=== PATIENT | female | born 1960 | race Caucasian/White ===

== ENCOUNTER 2016-05-10 16:01 | Inpatient (IN) | payer OTHER ==
--- NOTE | 2016-05-10 16:07 | EDPHY ---
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 Upon arrival, she is alert and oriented. Her primary complaint is head pain severity 7/10 localized to her posterior scalp with a scalp laceration. She denies neck or back pain. She does not remember the incident but reports that she suspects it is a seizure. She takes Lamictal for seizures and has not had any recent changes to her dosing. Medical history includes remote history of breast cancer and double mastectomy. REVIEW OF SYSTEMS: Constitutional: No weakness Eyes: No visual changes or eye pain Head: +pain to the posterior scalp ENT: No dental trauma Neck: No pain or injury Respiratory: No shortness of breath Cardiac: No chest pain Gastrointestinal: No abdominal pain, no vomiting Back: No pain or injury Genitourinary: No hematuria Musculoskeletal: No joint pain Skin: +head laceration Neurological: No headache, no dizziness Past Medical/Surgical History: History of breast cancer with double mastectomy 10 years [employer]. Seizures (Lamictal ); followed Dr. Zayas, neurologist. Social History: Denies drug or alcohol use. Physical Exam: General Appearance: Alert, pleasant Head: 4 cm scalp laceration posteriorly Eyes: No conjunctival erythema, PERRLA, EOMI ENT, Mouth: No hemotympanum, no oral trauma, no bony tenderness Neck: Non-tender, full range of motion without pain Respiratory: No chest wall tenderness, lungs clear bilaterally Cardiovascular: Regular rate and rhythm Abdomen: Abdomen is soft and non tender Skin: 2cm posterior scalp laceration, no abrasions Back: No midline T/L/S tenderness Extremities: Pelvis is stable and nontender; no extremity tenderness or deformity, full range of motion without pain Neurological: A&Ox3, normal motor function, normal sensory exam, cranial nerves intact Psychiatric: Mood and affect normal Constitutional: Initial Vital Signs Temperature (C) 37.2 C 05/10/16 16:09 Heart Rate 90 05/10/16 16:09 Respiratory Rate 18 05/10/16 16:09 Blood Pressure 135/91 H 05/10/16 16:09 O2 Sat (%) 99 05/10/16 16:09 O2 Delivery Mode Room Air Allergies/Adverse Reactions: Sulfa (Sulfonamide Antibiotics) Allergy (Verified 08/23/15 00:42) Home Medications: Medication Instructions Recorded ALPRAZolam [Xanax 1 MG (*)] 1 mg PO DAILY PRN 08/23/15 Ibuprofen [Motrin (*)] 200 mg PO DAILY PRN 08/23/15 lamoTRIgine [LamICTAL 100 MG (*)] 200 mg PO DAILY18 08/23/15 lamoTRIgine [LamICTAL 100 MG (*)] 400 mg PO DAILY 08/23/15 Acetaminophen [Tylenol 325mg (*)] 650 mg PO Q4 PRN #0 tab 08/24/15 Zolpidem Tartrate [Ambien 10 mg] 10 mg PO HS 05/10/16 Medical Decision Making - Diagnostics Imaging: Study: CT of the head without IV contrast Indication: Seizure, trauma Results: CT scan of the head was obtained. The results of the study are: Negative noncontrast CT of the head with no intracranial posttraumatic sequela identified. The study was read by the radiologist, Dr. Rai Mendoza. I viewed the images myself on the PACS system. Procedures: Procedure: Laceration repair. The 4cm laceration on the posterior scalp was anesthetized using lidocaine and epinephrine. The wound was irrigated, draped and explored to its base with a gloved finger. There were no deep structures involved. No foreign body palpable. The wound was repaired with jordi. The wound repair was simple. ED Course/Re-evaluation: 1603: Took EMS report at bedside. Found down, A&O x 2. Limited Trauma Activation downgraded on patient arrival. This patient has a history of seizures for which she is followed by a neurologist and has been prescribed Lamictal. Her last reported seizure was petite mal four days prior to arrival; she does not recall the last time she had a grand mal seizure but suspects that this is what she experienced today. Her exam is benign apart from a laceration to the posterior scalp. Will proceed with wound care, laceration repair, and CT of the head without contrast. 1721: Laceration repair performed by myself (see procedure note). The patient had a recurrent seizure while in the ED. Given this, she will need to be admitted for observation. IV established. 500mg IV Keppra with 100ml IV NS administered. No recurrent seizures after IV Keppra. 1932: Consultation with Dr. Gaviota Flores, hospitalist, who accepts admission. - Data Points Laboratory Results: Laboratory Results 05/10/16 19:25 05/10/16 19:25 Medications Given: Discontinued Medications Levetiracetam 500 mg/ Sodium (Chloride) 105 mls @ 420 mls/hr IV EDNOW ONE Stop: 05/10/16 19:32 Last Admin: 05/10/16 19:51 Dose: 105 mls Miscellaneous Medication (Zolpidem Tartrate [Ambien 10 Mg]) 10 mg PO HS TINO Stop: 11/07/16 20:59 Last Admin: 05/10/16 23:19 Dose: 10 mg Ondansetron HCl (Zofran Odt) 4 mg PO ONCE ONE Stop: 05/10/16 20:38 Last Admin: 05/10/16 17:30 Dose: 4 mg Departure - Departure Disposition: [facility] Inpatient Acute Clinical Impression: Seizure Scalp laceration Qualifiers: Encounter type: initial encounter Qualified Code(s): S01.01XA - Laceration without foreign body of scalp, initial encounter Condition: Fair Report Scribed for: Ericka Gordon Report Scribed by: Paty Hartman Date of Report: 05/10/16 Time of Report: 16:02
[2016-05-10] MEDS ORDERED: ONDANSETRON DISINTEGRATING 4 MG TAB ONE (19:02)
[2016-05-10] MEDS ORDERED: levETIRAcetam 500 MG in NS 100 ML IV ONE (19:18)
[2016-05-10 19:38] LABS: % IMMATURE GRANULYOCYTES 0.3 % (0.0-1.1); ABSOLUTE IMMATURE GRANULOCYTES 0.06 10^3/uL (0.00-0.10); ADD DIFF? NO; ADD MORPH? NO; ADD SCAN? NO; ATYPICAL LYMPHOCYTE FLAG 10 (0-99); FRAGMENT RBC FLAG 0 (0-99); HEMATOCRIT 42.3 % (38.0-47.0); LEFT SHIFT FLG 10 (0-99); LIPEMIA HEMOLYSIS FLAG 80 (0-99); MEAN CELL HEMOGLOBIN 31.7 pg (27.9-34.1); MEAN CELL HEMOGLOBIN CONCENTR. 33.1 g/dL (32.4-36.7); MEAN CELL VOLUME 95.9 fL (81.5-99.8); MEAN PLATELET VOLUME 10.5 fL (8.7-11.7); PLATELET CLUMPS FLAG 10 (0-99); PLATELET COUNT 244 10^3/uL (150-400); RED BLOOD CELL COUNT 4.41 10^6/uL (4.18-5.33); RED CELL DISTRIBUTION WIDTH 12.2 % (11.5-15.2)
[2016-05-10 19:48] LABS: ANION GAP 24 mEq/L (8-16); CALCIUM 9.8 mg/dL (8.5-10.4); CARBON DIOXIDE 13 mEq/l (22-31); CHLORIDE 104 mEq/L (97-110); CREATININE 0.7 mg/dL (0.6-1.0); GLOMERULAR FILTRATION RATE > 60; GLUCOSE 133 mg/dL (70-100); POTASSIUM 3.8 mEq/L (3.5-5.2); SODIUM 141 mEq/L (134-144)
[2016-05-10] MEDS ORDERED: ONDANSETRON DISINTEGRATING 4 MG TAB PO ONE (20:37)
[2016-05-10] MEDS ORDERED: ALPRAZolam 1 MG TAB PO PRN (23:07)
[2016-05-10] MEDS ORDERED: IBUPROFEN 200 MG TAB PO ONE (23:08)
[2016-05-10] MEDS ORDERED: ACETAMINOPHEN 325 MG TAB PO PRN (23:09)
[2016-05-10] MEDS ORDERED: ONDANSETRON 4 MG/2 ML VIAL IVP PRN (23:09)
[2016-05-10] MEDS: IBUPROFEN 200 MG TAB PO PRN (23:11)
[2016-05-10] MEDS ORDERED: ZOLPIDEM TARTRATE 5 MG TAB ONE (23:15)
[2016-05-10 23:26] LABS: ALBUMIN 4.7 g/dL (3.5-5.0); BILIRUBIN,TOTAL 1.1 mg/dL (0.1-1.4); BILIRUBIN-CONJUGATED 0.5 mg/dL (0.0-0.5); BILIRUBIN-UNCONJUGATED 0.6 mg/dL (0.0-1.1); MAGNESIUM 2.3 mg/dL (1.6-2.3); TOTAL PROTEIN 7.3 g/dL (6.3-8.2)
--- NOTE | 2016-05-11 00:06 | GHP ---
[f rep st] HISTORY AND PHYSICAL DATE OF ADMISSION: 05/10/2016 CHIEF COMPLAINT: Found down. HISTORY OF PRESENT ILLNESS: This is a 55-year-old female with history of breast cancer as well as seizure disorder with complex, partial, and grand mall seizures who was brought to the emergency department after being found down on the sidewalk at [facility] and [facility] this afternoon. The patient does not recall what happened. Per ER and EMS report, she presented to the ER as a limited trauma activation after she was found down bleeding from her head. Upon arrival to the ED she was alert and oriented, complaining of headache and pain over her scalp. The patient states that she has been compliant with her seizure medications. She takes Lamictal. Her last grand mal seizure was about 3 weeks ago but she has been having many petite mal seizures which is not unusual for her. She denies any fevers or chills. She denies any head trauma prior to the episode today. She denies any focal numbness or weakness. PAST MEDICAL HISTORY: 1. Seizure disorder with petit mall and grand mall seizures, followed by Dr. Zayas in [place]. 2. Breast cancer status post bilateral mastectomy reconstruction and adjuvant therapy. MEDICATIONS: Reviewed. Refer to [facility] for details. ALLERGIES: Sulfa. SOCIAL HISTORY: Lives in [place]. She denies any alcohol, tobacco, or illicit drug use. FAMILY HISTORY: Significant for breast cancer in her grandmother. REVIEW OF SYSTEMS: Comprehensive 10-point review of systems was done and is negative except for as mentioned in the HPI. PHYSICAL EXAM: VITAL SIGNS: Blood pressure 122/75, pulse of 90 respiratory rate 16, O2 saturation 96% on room air. Temperature afebrile. GENERAL: No acute distress. HEAD: Normocephalic. There is a closed posterior scalp laceration with jordi. NECK: Supple. No lymphadenopathy. CARDIOVASCULAR: S1, S. no JVD. No lower extremity edema. PULMONARY: Lungs are clear. No wheezes, rales, or rhonchi. ABDOMEN: Soft, nontender, nondistended. No guarding or rebound tenderness. Normoactive bowel sounds. EXTREMITIES: No clubbing or cyanosis. NEURO: Cranial nerves 2-12 grossly intact. No focal motor or sensory deficits. Moves all extremities. Vision is normal. Speech is fluent. SKIN: Clear no rashes. There is some erythema over her right AC. DIAGNOSTICS: WBC 18, hemoglobin 14, hematocrit 42.3, platelets 244. Sodium 141 , potassium 3.8, chloride 104, CO2 13, BUN 8, creatinine 0.7, glucose 133. Head CT was reviewed and was negative for intracranial posttraumatic sequelae. Brain MRI done 08/23/2015 was reviewed. Was negative for acute infarct. There was no intra-axial enhancing lesions or abnormal leptomeningeal enhancement. There were a few nonspecific hyperintense T2 flair signal abnormalities in the white matter of the bilateral cerebral hemispheres. ASSESSMENT AND PLAN: This is a 55-year-old female with history of breast cancer and seizure disorder presenting with: 1. Breakthrough seizures resulting in head trauma. Plan: Patient will be placed on observation. She has been loaded on Keppra in the emergency department. Neurology will be consulted. Will check LFTs and magnesium level to complete a metabolic workup for seizures. 2. Leukocytosis likely from stress demargination in the setting of seizure without obvious infectious etiology. Plan: Monitor for signs and symptoms of infection. 3. Scalp laceration. Plan: Recommend staple removal per ER recommendations as well as wound care. /[id number]/MODL MTDD
--- NOTE | 2016-05-11 09:11 | GCON ---
[f rep st] CONSULTATION REFERRING PHYSICIAN: Candido Brenner DO HISTORY: The patient is a 55-year-old woman, who is presenting for evaluation of seizure and being found down. History is obtained in review of the medical records, as well as discussion with the aravind gomes, but she does not know anything except being at some type of an appointment at [facility], and then waking up here in the emergency department. She has a history of breast c ancer, and says that perhaps 10 years ago started having seizures that she describes as petit mal an d grand mal seizures. She says the last time she had a grand mal seizure was about 2 months ago. S he describes khan mal seizures characterized by 5 minutes of being somewhat out of it and a little confused, but says that people looking at her might not even know she is having a seizure. She is f ollowed by Dr. Zayas at [facility] for neurologic care, and she is on Lamictal. She told me she is taking 250 mg a day, but that is not what is documented in the chart. She actually came to the e mergency department when she was found down on the sidewalk at [address] [place] [address], and she has absolute ly no memory for exactly what happened. She was complaining of a headache when she got to the emerg ency department, and was alert, though, and oriented. She apparently takes her medicines regularly. She reports having some of the khan mal seizures as often as 3 times a week. I think details are unreliable at this point. No fever, chills, nausea, vomiting, or diarrhea. The patient has a prior history of breast cancer. She has become homeless, although she says she stays at a assisted. She is not smoking or drinking or using drugs. ALLERGIES: Sulfa. FAMILY HISTORY: Notable for breast cancer in grandmother. LISTED MEDICATIONS: Lamotrigine 200 mg and 400 mg for a total of 600 mg daily, Xanax 1 mg as needed . PHYSICAL EXAM: VITAL SIGNS: Temperature is 37, blood pressure 102/63, pulse of 76, respirations 16 . GENERAL: She is well developed, in no acute distress. EYES: Clear. NECK: Supple. No bruits or masses. CARDIAC: Regular rate and rhythm. No murmur. NEUROLOGIC: She is awake, alert, attent roc, fully oriented. Pupils 3 mm and reactive. Extraocular movements are intact. Normal facial se nsation and strength. Motor exam: Normal muscle bulk and tone. 5/5 strength with no abnormal move ments. Sensation is preserved for temperature and light touch. Reflexes are 2+ and symmetric. LABORATORY STUDIES: White count of 18,000. Chemistries unremarkable except for bicarb of 13. Norm al liver enzymes. IMPRESSION: The patient has a history of seizures described as petit mal and grand mal. The descri ption of the petit mals may or may not represent complex partial phenomenon or other generalized sei zure-type phenomena versus conversion disorder, but at this point, I have no evidence to directly co ntradict that she is having intermittent seizures, including the generalized tonic-clonic events jorje t have been described. She is on reasonable doses of medication for now. I am not going to make an y change. She should follow up with Dr. Zayas when is she stabilized, and she seems to be doing relatively well at the moment, but wait until she is fully back to her baseline for discharge seems reasonable. Total unit time was 55 minutes. /[id number]/MODL
[2016-05-11] MEDS: lamoTRIgine 100 MG TAB PO SCH ×2 (09:30→17:10)
[2016-05-11] MEDS: IBUPROFEN 200 MG TAB PO PRN (13:05)
[2016-05-11] MEDS ORDERED: NS 1,000 ML IV ONE (15:18)
--- NOTE | 2016-05-11 15:28 | HOSPPROG ---
Hospitalist Progress Note Assessment/Plan: # seizure, with known seizure disorder - improved; seen by Dr Bonilla - cont hadley, lamictal # scalp laceration - s/p repair in ED # dizziness/possible concussion - still too dizzy to be discharged - IVF, symptomatic tx today # leukocytosis - likely stress, recheck tomorrow # homelessness # dispo - likely tomorrow if dizziness improves ## new pt to me chart reviewed CT head reviewed Subjective: still very dizzy Objective: Vital Signs Temp Pulse Resp BP Pulse Ox 36.7 C 85 16 139/73 H 97 05/11/16 12:34 05/11/16 12:34 05/11/16 12:34 05/11/16 12:34 05/11/16 12:08 05/10/16 05/11/16 05/12/16 05:59 05:59 05:59 Intake Total 1000 Balance 1000 - Physical Exam Constitutional: no apparent distress, appears nourished Cardiovascular: regular rate and rhythym, no murmur, rub, or gallop Respiratory: no respiratory distress, no rales or rhonchi, clear to auscultation Gastrointestinal: normoactive bowel sounds, soft, non-tender abdomen, no palpable masses ICD10 Worksheet Patient Problems: Problems Problem Status Onset Scalp laceration Acute Seizure Acute Seizure disorder Acute
[2016-05-11] MEDS ORDERED: NON-FORMULARY NEW DRUG (Zolpidem Tartrate [Ambien 10 Mg] 10 MG) PO SCH (21:00)
[2016-05-11] MEDS: ZOLPIDEM TARTRATE 5 MG TAB PO SCH (22:59)
[2016-05-12 05:15] LABS: % IMMATURE GRANULYOCYTES 0.2 % (0.0-1.1); ABSOLUTE IMMATURE GRANULOCYTES 0.01 10^3/uL (0.00-0.10); ADD DIFF? NO; ADD MORPH? NO; ADD SCAN? NO; ATYPICAL LYMPHOCYTE FLAG 20 (0-99); FRAGMENT RBC FLAG 0 (0-99); HEMOGLOBIN 11.6 g/dL (12.6-16.3); LEFT SHIFT FLG 0 (0-99); LIPEMIA HEMOLYSIS FLAG 80 (0-99); MEAN CELL HEMOGLOBIN 31.1 pg (27.9-34.1); MEAN CELL HEMOGLOBIN CONCENTR. 33.1 g/dL (32.4-36.7); MEAN CELL VOLUME 93.8 fL (81.5-99.8); MEAN PLATELET VOLUME 10.8 fL (8.7-11.7); PLATELET CLUMPS FLAG 0 (0-99); PLATELET COUNT 176 10^3/uL (150-400); RED BLOOD CELL COUNT 3.73 10^6/uL (4.18-5.33); RED CELL DISTRIBUTION WIDTH 12.5 % (11.5-15.2)
[2016-05-12 05:34] LABS: ANION GAP 9 mEq/L (8-16); CARBON DIOXIDE 25 mEq/l (22-31); CHLORIDE 110 mEq/L (97-110); CREATININE 0.7 mg/dL (0.6-1.0); GLOMERULAR FILTRATION RATE > 60; GLUCOSE 91 mg/dL (70-100); POTASSIUM 3.9 mEq/L (3.5-5.2); SODIUM 144 mEq/L (134-144)
[2016-05-12] MEDS: IBUPROFEN 200 MG TAB PO PRN ×3 (07:54→18:45)
[2016-05-12] MEDS: lamoTRIgine 100 MG TAB PO SCH ×2 (07:55→18:45)
--- NOTE | 2016-05-12 08:55 | HOSPPROG ---
Hospitalist Progress Note Assessment/Plan: patient is a 55-year-old female with history of breast cancer, seizure disorder who is brought to the emergency department after found down on the sidewalk. She has no recollection of what happened. Upon arrival to the ED she was alert and oriented. Today is my 1st encounter with the patient. Chart reviewed. Reviewed her care with Dr Bonilla. # seizure, with known seizure disorder - - cont Keppra, Lamictal - CT of head showed nothing acute - Dr Bonilla to decide if her doses should be changed # scalp laceration - s/p repair in ED -will need jordi removed in 7-10 days # dizziness/likely a concussion - - speech therapy, physical therapy, and occupational therapy seeing -having frequent headaches and dizziness #hx of breast cancer had a mastectomy # leukocytosis - Resolved # homelessness - very concerned about discharging her with a concussion, dizziness, and seizures -CM to look at possible placement and to discuss with the patient # dispo - pending/ she is not safe to be discharged Subjective: Maxine is c/o dizziness and headache. Objective: Vital Signs Temp Pulse Resp BP Pulse Ox 36.6 C 64 14 124/76 H 97 05/12/16 07:40 05/12/16 07:40 05/12/16 07:40 05/12/16 07:40 05/12/16 07:40 Laboratory Results 05/12/16 04:25 05/12/16 04:25 05/11/16 05/12/16 05/13/16 05:59 05:59 05:59 Intake Total 1800 Output Total 250 Balance 1550 - Physical Exam Constitutional: no apparent distress, appears nourished, not in pain Eyes: PERRL Ears, Nose, Mouth, Throat: hearing normal Cardiovascular: regular rate and rhythym Respiratory: no respiratory distress Gastrointestinal: normoactive bowel sounds Skin: warm, other (jordi on occipital area of head in place/ edges of laceration well approximated) Musculoskeletal: no muscle tenderness Neurologic: AAOx3 Psychiatric: interacting appropriately, not anxious ICD10 Worksheet Patient Problems: Problems Problem Status Onset Scalp laceration Acute Seizure Acute Seizure disorder Acute
[2016-05-12] MEDS: ACETAMINOPHEN 325 MG TAB PO PRN ×2 (11:40→21:24)
[2016-05-12] MEDS: ZOLPIDEM TARTRATE 5 MG TAB PO SCH (22:18)
[2016-05-13] MEDS: lamoTRIgine 100 MG TAB PO SCH ×2 (09:59→18:30)
--- NOTE | 2016-05-13 10:10 | HOSPPROG ---
Hospitalist Progress Note Assessment/Plan: patient is a 55-year-old female with history of breast cancer, seizure disorder who is brought to the emergency department after found down on the sidewalk. She has no recollection of what happened. Upon arrival to the ED she was alert and oriented. # seizure, with known seizure disorder - - cont Keppra, Lamictal - CT of head showed nothing acute - Dr Bonilla to decide if her doses should be changed # scalp laceration - s/p repair in ED -will need jordi removed in 7-10 days # dizziness/likely a concussion - - speech therapy, physical therapy, and occupational therapy seeing - continues to be very dizzy/ concerned about her ambulating #hx of breast cancer had a mastectomy # leukocytosis - Resolved # homelessness - very concerned about discharging her with a concussion, dizziness, and seizures -CM to look at possible placement and to discuss with the patient # dispo - pending/ she is not safe to be discharged Subjective: Maxine continues to have a headache. Objective: Vital Signs Temp Pulse Resp BP Pulse Ox 37 C 72 14 120/72 96 05/13/16 07:28 05/13/16 07:28 05/13/16 07:28 05/13/16 07:28 05/13/16 07:28 Laboratory Results 05/12/16 04:25 05/12/16 04:25 05/12/16 05/13/16 05/14/16 05:59 05:59 05:59 Intake Total 1800 1350 Output Total 250 450 Balance 1550 900 - Physical Exam Constitutional: no apparent distress, appears nourished, not in pain Eyes: PERRL Ears, Nose, Mouth, Throat: hearing normal, other (tongue lac on right side/ healing) Cardiovascular: regular rate and rhythym Respiratory: no respiratory distress Gastrointestinal: normoactive bowel sounds Skin: warm Musculoskeletal: no muscle tenderness Neurologic: AAOx3 Psychiatric: interacting appropriately, not anxious, not encephalopathic ICD10 Worksheet Patient Problems: Problems Problem Status Onset Scalp laceration Acute Seizure Acute Seizure disorder Acute
[2016-05-13] MEDS: IBUPROFEN 200 MG TAB PO PRN ×2 (12:01→20:29)
[2016-05-13] MEDS: ZOLPIDEM TARTRATE 5 MG TAB PO SCH (22:13)
[2016-05-14] MEDS: lamoTRIgine 100 MG TAB PO SCH ×2 (07:44→17:48)
[2016-05-14] MEDS: IBUPROFEN 200 MG TAB PO PRN ×2 (07:44→17:06)
--- NOTE | 2016-05-14 12:55 | HOSPPROG ---
Hospitalist Progress Note Assessment/Plan: patient is a 55-year-old female with history of breast cancer, seizure disorder who is brought to the emergency department after found down on the sidewalk. She has no recollection of what happened. Upon arrival to the ED she was alert and oriented. # seizure, with known seizure disorder - - cont Keppra, Lamictal - CT of head showed nothing acute - she sees Dr Binta Zayas at [facility]/ I spoke w her office , [place] reviewed her care with neurology today/ their recommendation is to avoid any Xanax which she takes prn/ increases seizure threshold - she say she has not used Xanax in a long time - Lamictal level is pending # scalp laceration - s/p repair in ED -will need jordi removed in 7-10 days # dizziness/likely a concussion - - speech therapy, physical therapy, and occupational therapy seeing - continues to be very dizzy/ concerned about her ambulating -w hen I evaluated her today, she had difficulty with walking/ she doesn't want to go to a SNF #hx of breast cancer had a mastectomy # leukocytosis - Resolved # homelessness - very concerned about discharging her with a concussion, dizziness, and seizures - she has a room at the long-term # dispo - pending/ she is not safe to be discharged. Declining SNF/ Number [facility] is [phone] (x [phone])/ I spoke with the [place] who said Dr Zayas returns on Saturday. Will ask next provider caring for Maxine to call and discuss Lamictal dosing. We have a Lamictal level pending/ there is no recent level in her office. Patient has been updated on this plan. Subjective: Maxine is feeling better daily but having some difficulty w walking. Objective: Vital Signs Temp Pulse Resp BP Pulse Ox 36.9 C 70 16 132/77 H 97 05/14/16 07:27 05/14/16 07:27 05/14/16 07:27 05/14/16 07:27 05/14/16 07:27 Laboratory Results 05/12/16 04:25 05/12/16 04:25 05/13/16 05/14/16 05/15/16 05:59 05:59 05:59 Intake Total 1350 1700 Output Total 450 400 Balance 900 1300 - Physical Exam Constitutional: no apparent distress, appears nourished, not in pain Eyes: PERRL Ears, Nose, Mouth, Throat: hearing normal Respiratory: no respiratory distress Gastrointestinal: normoactive bowel sounds Skin: warm Musculoskeletal: abnormal gait (gait is unstable/she walks with a widened gait) , generalized weakness Neurologic: AAOx3 Psychiatric: interacting appropriately, not anxious, not encephalopathic, thought process linear ICD10 Worksheet Patient Problems: Problems Problem Status Onset Seizure disorder Acute Seizure Acute Scalp laceration Acute
[2016-05-14] MEDS: ZOLPIDEM TARTRATE 5 MG TAB PO SCH (22:15)
[2016-05-15 07:46] VITALS: RESP 14
[2016-05-15] MEDS: IBUPROFEN 200 MG TAB PO PRN (08:05)
[2016-05-15] MEDS: lamoTRIgine 100 MG TAB PO SCH ×2 (08:05→17:57)
--- NOTE | 2016-05-15 13:46 | PDIAF ---
- Diagnosis Diagnosis: Seizure Code Status: Full Code - Medication Management Discharge Medications: Medications to Continue on Transfer lamoTRIgine [LamICTAL 100 MG (*)] 200 mg PO DAILY18 08/23/15 [Last Taken ] lamoTRIgine [LamICTAL 100 MG (*)] 400 mg PO DAILY 08/23/15 [Last Taken 05/10/16] Acetaminophen [Tylenol 325mg (*)] 650 mg PO Q4 PRN #0 tab 08/24/15 [Last Taken Unknown] Zolpidem Tartrate [Ambien 10 mg] 10 mg PO HS 05/10/16 [Last Taken 05/09/16] Ibuprofen [Motrin (*)] 400 mg PO Q6HRS PRN #0 tab 05/15/16 [Last Taken Unknown] Discharge Medications: Refer to the Discharge Home Medication list for PRN reason. - Orders Services needed: Registered Nurse, Physical Therapy, Occupational Therapy, Speech Language Pathologist - Follow Up Care Current Providers and Referrals: MEL NEAL [Non Staff Provider (MD)] - As per Instructions
--- NOTE | 2016-05-15 15:24 | GDS ---
[f rep st] DISCHARGE SUMMARY DISCHARGE DIAGNOSES: 1. Seizure. 2. Head laceration. 3. Dizziness. 4. History of breast cancer. 5. Leukocytosis. 6. Homelessness. STUDIES/PROCEDURES: 1. CT of the head. 2. Scalp laceration suturing. PHYSICAL EXAMINATION: GENERAL: The patient is alert. VITAL SIGNS: Afebrile at 36.7, pulse 69, re spiratory rate 14 blood pressure is 121/76. She is saturating 99% on room air. I have seen and jhonny luated the patient on the day of discharge. HOSPITAL COURSE: The patient is a 55-year-old female who was found down on the sidewalk. She prese nted to the emergency room via EMS and was diagnosed with: 1. Seizure: She does have a known seizure disorder. She is on Keppra as well as Lamictal. She wi ll follow up with her primary neurologist, Dr. Zayas, and she has been educated to avoid Xanax i n the future as it increases her seizure threshold. She is in agreement with this plan. 2. Scalp laceration: This has been stapled in the emergency room and will require staple removal i n 3 days. 3. Dizziness: Patient likely suffered a concussion. She has been evaluated by Physical Therapy, a s well as Speech Therapy and Occupational Therapy. penitentiary facility is recommended at the t tete of disposition. 4. History of breast cancer: This is stable. 5. Leukocytosis: This has resolved. 6. Homelessness: The patient is in a program with the halfway. DISPOSITION: The patient will be discharged to [facility] for further rehabilitation and management. She does suffer from some ataxia and other concerns. She has been evaluated by Physical Therapy a nd Occupational therapy. I spent greater than 35 minutes in the care, coordination, and management of the patient's dispositi on. DISCHARGE MEDICATIONS: Please refer to EMR form. She will continue on Lamictal as well as Motrin a brenda Christianien. /[id number]/MODL
[2016-05-15 16:41] VITALS: BP 127/67; PULSE 74; TEMP 98.4; O2SAT 98
== END 2016-05-15 17:58 | disposition home or self-care (01) | DRG 101 ==
LOC: EDUNIT# → F3N 05-11 12:24 → OBSVTOIN 05-11 15:28 → F3E 05-14 15:42
PROVIDERS: ADMIT Internal Medicine; ATTEND Student in an Organized Health Care Education/Training Program
PROC: 0HQ0XZZ Repair Scalp Skin, External Approach (ICD-10-PCS; principal; 2016-05-11)
DX: G40.409 Other generalized epilepsy and epileptic syndromes, not intractable, without status epilepticus (principal); S06.0X9A Concussion with loss of consciousness of unspecified duration, initial encounter; S01.01XA Laceration without foreign body of scalp, initial encounter; W18.30XA Fall on same level, unspecified, initial encounter; Y92.89 Other specified places as the place of occurrence of the external cause; Z85.3 Personal history of malignant neoplasm of breast; Z59.0 Homelessness
CPT/HCPCS: 80175-90; 92507-GN; 92523-GN; 96365; 97116-GP; 97161-GP; 97165-GO; 97535-GO; G0378; G8978-GP-CJ; G8979-GP-CI; G8987-GO-CI; G8988-GO-CI; G8989-GO-CI; G9168-GN-CJ; G9169-GN-CI; J1953

== ENCOUNTER 2016-07-26 22:49 | Emergency (ER) | payer OTHER ==
--- NOTE | 2016-07-26 22:58 | EDPHY ---
H & P HPI/ROS: HPI CHIEF COMPLAINT: AMS from [facility]. HISTORY OF PRESENT ILLNESS: This patient 56-year-old female she arrives by EMS from the [facility], according to EMS the [facility] reports that she has altered they called EMS for evaluation. When EMS arrived there are unclear what her baseline mental state is so they decided to bring her to the emergency room for evaluation. Upon arrival here in emergency room she knows the year, knows the president, however there is nobody to confirm that this is her normal mental status baseline. She does at times appear slightly confused. She does tell me she has seizures and does not take any seizure medication. She is homeless. She denies drugs or alcohol. Past Medical History: Seizure, breast cancer, homelessness Past Surgical History: No recent surgery Social History: Homeless, denies daily use of drugs alcohol or tobacco Family History: Noncontributory ROS REVIEW OF SYSTEMS: A comprehensive 10 point review of systems is otherwise negative aside from elements mentioned in the history of present illness. Exam Constitutional triage nursing summary reviewed, vital signs reviewed, awake/ alert. Eyes normal conjunctivae and sclera, EOMI, PERRLA. HENT normal inspection, atraumatic, moist mucus membranes, no epistaxis, neck supple/ no meningismus, no raccoon eyes. Respiratory clear to auscultation bilaterally, normal breath sounds, no respiratory distress, no wheezing. Cardiovascular rate normal, regular rhythm, no murmur, no edema, distal pulses normal. Gastrointestinal soft, non-tender, no rebound, no guarding, normal bowel sounds, no distension, no pulsatile mass. Genitourinary no CVA tenderness. Musculoskeletal no midline vertebral tenderness, full range of motion, no calf swelling, no tenderness of extremities, no meningismus, good pulses, neurovascularly intact. Skin pink, warm, & dry, no rash, skin atraumatic. Neurologic awake, alert and oriented x 4, AAOx4, moves all 4 extremities equally, motor intact, sensory intact, CN II-XII intact, normal cerebellar, normal vision, normal speech. Psychiatric normal mood/affect. Heme/Lymph/Immune no lymphadenopathy. Differential Diagnosis: Includes but is not limited to in a particular order altered mental status, recent seizure leading to confusion, encephalopathy, delirium, electrolyte disturbance, infection, head bleed Medical Decision Making: Plan for this patient IV establishment, blood work, CT head, EKG, troponin, urine, drug screen will evaluate her for possible altered mental status will try to get more pre-hospital information about who thinks she is altered and what her normal baseline is however somewhat difficult as she is homeless. Re-evaluation: EKG interpretation by me on record in [employer] system. Impression time of EKG 2337, this is sinus rhythm rate of 81, normal intervals. No evidence of ischemia on this EKG unremarkable EKG. CT scan of the head without IV contrast. The results of the study are negative for acute abnormality . The study was read by Dr. Negron I viewed the images myself on the PACS system. ED x-ray chest one view: Negative for acute cardiopulmonary disease. [id number]: RE-EVALUATION AT THIS TIME THIS PATIENT IS, COOPERATIVE SHE IS ALERT OR X4 SHE CAN'T TELL ME WHO THE PRESIDENT IS SHE CAN'T TELL ME WHAT YEAR IT IS, SHE TELLS ME WHAT CITY SHE IS IN AND THAT SHE IS AT [facility]. SHE TELLS ME THAT SHE IS NOW HOMELESS HER CAR WAS REMOTE. SHE ALSO TELLS ME THAT SHE SPENT A BRIEF PERIOD OF TIME AND CREST ABUSE [place] BEFORE COMING TO [place]. SHE ALSO TELLS ME SHE HAS EPILEPSY AND TAKES LAMICTAL. HERE IN THE EMERGENCY ROOM SHE DOES NOT APPEAR ACUTELY ALTERED SHE HAD A RATHER LARGE WORKUP FOR POSSIBLE ALTERED MENTAL STATUS WHICH INCLUDED BLOOD WORK, CT SCAN, X-RAY WHICH ARE ALL UNREMARKABLE. GIVEN THAT SHE IS ALERT OR X4. AND IS ACTING APPROPRIATELY I WILL ALLOW HER TO BE DISCHARGED FROM THE EMERGENCY ROOM. HER VITAL SIGNS HAVE BEEN REVIEWED. STABLE. SHE HAS NO PLACE TO GO THIS EVENING SHE IS NEWLY HOMELESS SHE LOST HER CAR. SHE ALSO THINKS SHE MAY NOT HAVE ACCESS TO HER LAMICTAL I HAVE WRITTEN HER PRESCRIPTION FOR THIS. SHE TELLS ME SHE TAKES 200 MG. SHE DOES UNDERSTAND RETURN EMERGENCY ROOM IF SHE HAS ANY WORSENING SYMPTOMS QUESTIONS OR CONCERNS. Patient also tells me she has epilepsy and takes Lamictal for this. I do not have any evidence that this patient is acutely altered or that there is a serious infection going on. Given that she is able to converse with me normally gives me accurate history including that she has seizures and takes Lamictal, and spent a brief time a crest to be which is previously documented I feel that she is safe for discharge from the ER. Source: Patient, EMS - Medical/Surgical History Hx Asthma: No Hx Chronic Respiratory Disease: No Hx Diabetes: No Hx Cardiac Disease: No Hx Renal Disease: No Hx Cirrhosis: No Hx Alcoholism: No Hx HIV/AIDS: No Hx Splenectomy or Spleen Trauma: No Other PMH: SZ DISORDER, BREAST CANCER, KNEE SURGERY - Social History Smoking Status: Never smoked Constitutional: Initial Vital Signs Temperature (C) 37.4 C 07/26/16 22:50 Heart Rate 88 07/26/16 22:50 Respiratory Rate 16 07/26/16 22:50 Blood Pressure 156/84 H 07/26/16 22:50 O2 Sat (%) 95 07/26/16 22:50 O2 Delivery Mode Room Air Allergies/Adverse Reactions: Sulfa (Sulfonamide Antibiotics) Allergy (Verified 07/26/16 23:14) Home Medications: Medication Instructions Recorded lamoTRIgine [LamICTAL 100 MG (*)] 200 mg PO DAILY18 08/23/15 lamoTRIgine [LamICTAL 100 MG (*)] 400 mg PO DAILY 08/23/15 Acetaminophen [Tylenol 325mg (*)] 650 mg PO Q4 PRN #0 tab 08/24/15 Zolpidem Tartrate [Ambien 10 mg] 10 mg PO HS 05/10/16 Ibuprofen [Motrin (*)] 400 mg PO Q6HRS PRN #0 tab 05/15/16 lamoTRIgine [Lamictal] 200 mg PO DAILY #30 tablet 07/27/16 Medical Decision Making - Diagnostics Imaging Results: Imaging Impressions Chest X-Ray 07/26/16 23:05 Impression: Clear lungs. No acute process. Head CT 07/26/16 23:05 Impression: No acute process. No acute intracranial hemorrhage, ischemia, or swelling. Findings discussed with Emergency Department physician, Brendan Butler MD at 07/26/2016 23:48. - Data Points Laboratory Results: Laboratory Results 07/26/16 22:45 07/26/16 22:45 07/26/16 07/26/16 07/26/16 23:25 22:45 22:45 WBC RBC Hgb Hct MCV MCH MCHC RDW Plt Count MPV Neut % (Auto) Lymph % (Auto) [place] % (Auto) Eos % (Auto) Baso % (Auto) Nucleat RBC Rel Count Absolute Neuts (auto) Absolute Lymphs (auto) Absolute Monos (auto) Absolute Eos (auto) Absolute Basos (auto) Absolute Nucleated RBC Immature Gran % Immature Gran # PT 12.3 SEC SEC (12.0-15.0) INR 0.92 (0.83-1.16) Sodium 140 mEq/L mEq/L (134-144) Potassium 4.5 mEq/L mEq/L (3.5-5.2) Chloride 103 mEq/L mEq/L (97-110) Carbon Dioxide 20 mEq/l L mEq/l (22-31) Anion Gap 17 mEq/L H mEq/L (8-16) BUN 39 mg/dL H mg/dL (7-23) Creatinine 0.9 mg/dL mg/dL (0.6-1.0) Estimated GFR > 60 Glucose 84 mg/dL mg/dL (70-100) Calcium 10.1 mg/dL mg/dL (8.5-10.4) Troponin I < 0.012 ng/mL ng/mL (0-0.034) Urine Opiates Screen NEGATIVE (NEGATIVE) Urine Barbiturates NEGATIVE (NEGATIVE) Lamotrigine Ur Phencyclidine Scrn NEGATIVE (NEGATIVE) Ur Amphetamine Screen NEGATIVE (NEGATIVE) U Benzodiazepines Scrn NEGATIVE (NEGATIVE) Urine Cocaine Screen NEGATIVE (NEGATIVE) U Marijuana (THC) Screen NEGATIVE (NEGATIVE) Ethyl Alcohol < 10 mg/dL mg/dL (0-10) 07/26/16 07/26/16 22:45 22:45 WBC 12.44 10^3/uL H 10^3/uL (3.80-9.50) RBC 4.65 10^6/uL 10^6/uL (4.18-5.33) Hgb 14.7 g/dL g/dL (12.6-16.3) Hct 43.0 % % (38.0-47.0) MCV 92.5 fL fL (81.5-99.8) MCH 31.6 pg pg (27.9-34.1) MCHC 34.2 g/dL g/dL (32.4-36.7) RDW 13.2 % % (11.5-15.2) Plt Count 235 10^3/uL 10^3/uL (150-400) MPV 11.1 fL fL (8.7-11.7) Neut % (Auto) 77.1 % H % (39.3-74.2) Lymph % (Auto) 12.8 % L % (15.0-45.0) [place] % (Auto) 9.8 % % (4.5-13.0) Eos % (Auto) 0.0 % L % (0.6-7.6) Baso % (Auto) 0.1 % L % (0.3-1.7) Nucleat RBC Rel Count 0.0 % % (0.0-0.2) Absolute Neuts (auto) 9.59 10^3/uL H 10^3/uL (1.70-6.50) Absolute Lymphs (auto) 1.59 10^3/uL 10^3/uL (1.00-3.00) Absolute Monos (auto) 1.22 10^3/uL H 10^3/uL (0.30-0.80) Absolute Eos (auto) 0.00 10^3/uL L 10^3/uL (0.03-0.40) Absolute Basos (auto) 0.01 10^3/uL L 10^3/uL (0.02-0.10) Absolute Nucleated RBC 0.00 10^3/uL 10^3/uL (0-0.01) Immature Gran % 0.2 % % (0.0-1.1) Immature Gran # 0.03 10^3/uL 10^3/uL (0.00-0.10) PT INR Sodium Potassium Chloride Carbon Dioxide Anion Gap BUN Creatinine Estimated GFR Glucose Calcium Troponin I Urine Opiates Screen Urine Barbiturates Lamotrigine Pending Ur Phencyclidine Scrn Ur Amphetamine Screen U Benzodiazepines Scrn Urine Cocaine Screen U Marijuana (THC) Screen Ethyl Alcohol Medications Given: Discontinued Medications Sodium Chloride (Ns) 1,000 mls @ 0 mls/hr IV ONCE ONE PRN Reason: Wide Open Stop: 07/26/16 23:05 Last Admin: 07/26/16 23:30 Dose: 1,000 mls Departure - Departure Disposition: Home, Routine, Self-Care Clinical Impression: Homeless Epilepsy Qualifiers: Epilepsy type: unspecified Intractability: not intractable Status epilepticus: without status epilepticus Qualified Code(s): G40.909 - Epilepsy, unspecified, not intractable, without status epilepticus Condition: Good Instructions: Epilepsy (ED) Additional Instructions: 1. Return emergency room if he develops any worsening symptoms questions or concerns. Referrals: Patient,NotPresent [Primary Care Provider] - As per Instructions Prescriptions: lamoTRIgine [Lamictal] 200 mg PO DAILY #30 tablet
[2016-07-26] MEDS ORDERED: NS 1,000 ML IV ONE (23:04)
[2016-07-26 23:17] VITALS: RESP 16
[2016-07-26 23:21] LABS: % IMMATURE GRANULYOCYTES 0.2 % (0.0-1.1); ABSOLUTE IMMATURE GRANULOCYTES 0.03 10^3/uL (0.00-0.10); ADD DIFF? NO; ADD MORPH? NO; ADD SCAN? NO; ATYPICAL LYMPHOCYTE FLAG 0 (0-99); FRAGMENT RBC FLAG 0 (0-99); HEMOGLOBIN 14.7 g/dL (12.6-16.3); LEFT SHIFT FLG 0 (0-99); LIPEMIA HEMOLYSIS FLAG 90 (0-99); MEAN CELL HEMOGLOBIN 31.6 pg (27.9-34.1); MEAN CELL HEMOGLOBIN CONCENTR. 34.2 g/dL (32.4-36.7); MEAN CELL VOLUME 92.5 fL (81.5-99.8); MEAN PLATELET VOLUME 11.1 fL (8.7-11.7); PLATELET CLUMPS FLAG 0 (0-99); PLATELET COUNT 235 10^3/uL (150-400); RED BLOOD CELL COUNT 4.65 10^6/uL (4.18-5.33); RED CELL DISTRIBUTION WIDTH 13.2 % (11.5-15.2)
[2016-07-26 23:24] LABS: INR 0.92 (0.83-1.16); PROTIME(PATIENT) 12.3 SEC (12.0-15.0)
[2016-07-26 23:27] LABS: ANION GAP 17 mEq/L (8-16); CALCIUM 10.1 mg/dL (8.5-10.4); CARBON DIOXIDE 20 mEq/l (22-31); CHLORIDE 103 mEq/L (97-110); CREATININE 0.9 mg/dL (0.6-1.0); ETHANOL SERUM < 10 mg/dL (0-10); GLOMERULAR FILTRATION RATE > 60; GLUCOSE 84 mg/dL (70-100); POTASSIUM 4.5 mEq/L (3.5-5.2); SODIUM 140 mEq/L (134-144)
[2016-07-26 23:38] LABS: TROPONIN I < 0.012 ng/mL (0-0.034)
--- NOTE | 2016-07-26 23:40 | CPEKG ---
Heart Rate: 81 RR Interval: 741 P-R Interval: 144 QRSD Interval: 82 QT Interval: 396 QTC Interval: 460 P [place]: 53 QRS [place]: 7 T Wave [place]: 44 EKG Severity - NORMAL ECG - EKG Impression: SINUS RHYTHM Electronically Signed By: Brendan Butler 27-Jul-2016 07:11:53
[2016-07-27 02:15] VITALS: BP 141/80; PULSE 85; TEMP 98.6; O2SAT 94
== END 2016-07-27 02:15 | disposition home or self-care (01) ==
LOC: EDUNIT#
DX: G40.909 Epilepsy, unspecified, not intractable, without status epilepticus (principal); Z59.0 Homelessness; Z85.3 Personal history of malignant neoplasm of breast
CPT/HCPCS: 80175-90; 80305; G0480

== ENCOUNTER 2016-07-28 09:56 | Inpatient (IN) | payer OTHER ==
--- NOTE | 2016-07-28 11:35 | EDPHY ---
H & P Stated Complaint: M1 Source: Police - Personal History Current Tetanus/Diphtheria Vaccine: Yes Current Tetanus Diphtheria and Acellular Pertussis (TDAP): Yes - Medical/Surgical History Hx Asthma: No Hx Chronic Respiratory Disease: No Hx Diabetes: No Hx Cardiac Disease: No Hx Renal Disease: No Hx Cirrhosis: No Hx Alcoholism: No Hx HIV/AIDS: No Hx Splenectomy or Spleen Trauma: No Other PMH: SZ DISORDER, BREAST CANCER, KNEE SURGERY - Social History Smoking Status: Never smoked Time Seen by Provider: 07/28/16 11:22 HPI/ROS: CHIEF COMPLAINT: AMS, compatible HISTORY OF PRESENT ILLNESS: This is a 56-year-old female brought in by police department, please reports patient was found knocking on doors threatening people stating "your trying to take my baby" police stated she was threatening them as well. Patient agitated pacing. Patient was seen here on 07/26/2016 for similar symptoms, AMS CT head was negative EKG was normal discharge on her own. Patient states she would like some food "I have any eaten in several weeks ". REVIEW OF SYSTEMS: Constitutional: No fever, no chills. Eyes: No blurred vision ENT: No sore throat. Cardiovascular: No chest pain, no palpitations. Respiratory: No cough, no shortness of breath. Gastrointestinal: No abdominal pain, no vomiting. Genitourinary: No difficulty urinating Musculoskeletal: No back pain. Skin: No rashes. Neurological: No headache. (Whitney Rousseau) - Physical Exam Exam: General Appearance: Alert, no distress. Eyes: Pupils equal and round no pallor or injection. ENT, Mouth: Mucous membranes moist. Respiratory: There are no retractions, lungs are clear to auscultation. Cardiovascular: Regular rate and rhythm. Gastrointestinal: Abdomen is soft and nontender, no masses Neurological: memory loss, has episodes of cognitive lucidity. Skin: Warm and dry, no rashes. Musculoskeletal: Neck is supple nontender. Extremities: symmetrical, full range of motion. Psychiatric: Patient is oriented to person, month and date , there is agitation , anger. (Whitney Rousseau) Constitutional: Initial Vital Signs Temperature (C) 36.4 C 07/28/16 09:59 Heart Rate 91 07/28/16 09:59 Respiratory Rate 16 07/28/16 09:59 Blood Pressure 99/88 H 07/28/16 09:59 O2 Sat (%) 94 07/28/16 09:59 O2 Delivery Mode Room Air Allergies/Adverse Reactions: Sulfa (Sulfonamide Antibiotics) Allergy (Verified 07/26/16 23:14) Home Medications: Medication Instructions Recorded Zolpidem Tartrate [Ambien 10 mg] 10 mg PO HS 05/10/16 lamoTRIgine [Lamictal] 200 mg PO DAILY #30 tablet 07/27/16 ALPRAZolam [Xanax 1 MG (*)] 1 mg PO BID PRN 07/28/16 Medical Decision Making ED Course/Re-evaluation: Spoke with Daniel with [facility], she states there is no psych component to her altered mental status more likely dementia. 1225: Discussed with Dr. Colón, patient to be admitted for AMS 1230: Patient inpatient admit to Dr. Le 1245: Spoke with Britney with case management on the hospital unit, patient will be evaluated for outpatient placement during her hospital stay (Whitney Rousseau) I did not see this patient while she was in the emergency department. However her care was discussed with PA while the patient was in the department. I agree with treatment plan and management (Brian Colón) Differential Diagnosis: Other differential diagnosis considered but not limited to seizure, CVA and electrolyte imbalance (Whitney Rousseau) - Data Points Laboratory Results: Laboratory Results 07/28/16 11:18 07/28/16 11:18 07/28/16 07/28/16 07/28/16 11:30 11:18 11:18 WBC RBC Hgb Hct MCV MCH MCHC RDW Plt Count MPV Neut % (Auto) Lymph % (Auto) [place] % (Auto) Eos % (Auto) Baso % (Auto) Nucleat RBC Rel Count Absolute Neuts (auto) Absolute Lymphs (auto) Absolute Monos (auto) Absolute Eos (auto) Absolute Basos (auto) Absolute Nucleated RBC Immature Gran % Immature Gran # Sodium Potassium Chloride Carbon Dioxide Anion Gap BUN Creatinine Estimated GFR Glucose Calcium Total Bilirubin 2.8 mg/dL H mg/dL (0.1-1.4) Conjugated Bilirubin 0.9 mg/dL H mg/dL (0.0-0.5) Unconjugated Bilirubin 1.9 mg/dL H mg/dL (0.0-1.1) AST 209 IU/L H IU/L (14-46) ALT 136 IU/L H IU/L (9-52) Alkaline Phosphatase 81 IU/L IU/L (38-126) Total Protein 8.4 g/dL H g/dL (6.3-8.2) Albumin 5.0 g/dL g/dL (3.5-5.0) Beta HCG, Qual NEGATIVE Salicylates Urine Opiates Screen NEGATIVE (NEGATIVE) Urine Barbiturates NEGATIVE (NEGATIVE) Ur Phencyclidine Scrn NEGATIVE (NEGATIVE) Ur Amphetamine Screen NEGATIVE (NEGATIVE) U Benzodiazepines Scrn NEGATIVE (NEGATIVE) Urine Cocaine Screen NEGATIVE (NEGATIVE) U Marijuana (THC) Screen NEGATIVE (NEGATIVE) Ethyl Alcohol 07/28/16 07/28/16 11:18 11:18 WBC 11.01 10^3/uL H 10^3/uL (3.80-9.50) RBC 4.73 10^6/uL 10^6/uL (4.18-5.33) Hgb 15.0 g/dL g/dL (12.6-16.3) Hct 43.5 % % (38.0-47.0) MCV 92.0 fL fL (81.5-99.8) MCH 31.7 pg pg (27.9-34.1) MCHC 34.5 g/dL g/dL (32.4-36.7) RDW 12.6 % % (11.5-15.2) Plt Count 281 10^3/uL 10^3/uL (150-400) MPV 11.4 fL fL (8.7-11.7) Neut % (Auto) 78.9 % H % (39.3-74.2) Lymph % (Auto) 12.3 % L % (15.0-45.0) [place] % (Auto) 8.4 % % (4.5-13.0) Eos % (Auto) 0.0 % L % (0.6-7.6) Baso % (Auto) 0.2 % L % (0.3-1.7) Nucleat RBC Rel Count 0.0 % % (0.0-0.2) Absolute Neuts (auto) 8.70 10^3/uL H 10^3/uL (1.70-6.50) Absolute Lymphs (auto) 1.35 10^3/uL 10^3/uL (1.00-3.00) Absolute Monos (auto) 0.92 10^3/uL H 10^3/uL (0.30-0.80) Absolute Eos (auto) 0.00 10^3/uL L 10^3/uL (0.03-0.40) Absolute Basos (auto) 0.02 10^3/uL 10^3/uL (0.02-0.10) Absolute Nucleated RBC 0.00 10^3/uL 10^3/uL (0-0.01) Immature Gran % 0.2 % % (0.0-1.1) Immature Gran # 0.02 10^3/uL 10^3/uL (0.00-0.10) Sodium 139 mEq/L mEq/L (134-144) Potassium 4.6 mEq/L mEq/L (3.5-5.2) Chloride 102 mEq/L mEq/L (97-110) Carbon Dioxide 19 mEq/l L mEq/l (22-31) Anion Gap 18 mEq/L H mEq/L (8-16) BUN 40 mg/dL H mg/dL (7-23) Creatinine 0.9 mg/dL mg/dL (0.6-1.0) Estimated GFR > 60 Glucose 69 mg/dL L mg/dL (70-100) Calcium 9.9 mg/dL mg/dL (8.5-10.4) Total Bilirubin Conjugated Bilirubin Unconjugated Bilirubin AST ALT Alkaline Phosphatase Total Protein Albumin Beta HCG, Qual Salicylates < 1.0 mg/dL L mg/dL (2.0-20.0) Urine Opiates Screen Urine Barbiturates Ur Phencyclidine Scrn Ur Amphetamine Screen U Benzodiazepines Scrn Urine Cocaine Screen U Marijuana (THC) Screen Ethyl Alcohol < 10 mg/dL mg/dL (0-10) Departure - Departure Disposition: [facility] Clinical Impression: Altered mental status Qualifiers: Altered mental status type: transient alteration of awareness Qualified Code(s) : R40.4 - Transient alteration of awareness Condition: Good
[2016-07-28 11:57] LABS: % IMMATURE GRANULYOCYTES 0.2 % (0.0-1.1); ABSOLUTE IMMATURE GRANULOCYTES 0.02 10^3/uL (0.00-0.10); ADD DIFF? NO; ADD MORPH? NO; ADD SCAN? NO; ATYPICAL LYMPHOCYTE FLAG 0 (0-99); FRAGMENT RBC FLAG 0 (0-99); HEMATOCRIT 43.5 % (38.0-47.0); LEFT SHIFT FLG 0 (0-99); LIPEMIA HEMOLYSIS FLAG 90 (0-99); MEAN CELL HEMOGLOBIN 31.7 pg (27.9-34.1); MEAN CELL HEMOGLOBIN CONCENTR. 34.5 g/dL (32.4-36.7); MEAN PLATELET VOLUME 11.4 fL (8.7-11.7); PLATELET CLUMPS FLAG 0 (0-99); PLATELET COUNT 281 10^3/uL (150-400); RED BLOOD CELL COUNT 4.73 10^6/uL (4.18-5.33); RED CELL DISTRIBUTION WIDTH 12.6 % (11.5-15.2)
[2016-07-28 12:03] LABS: ANION GAP 18 mEq/L (8-16); CALCIUM 9.9 mg/dL (8.5-10.4); CARBON DIOXIDE 19 mEq/l (22-31); CHLORIDE 102 mEq/L (97-110); CREATININE 0.9 mg/dL (0.6-1.0); ETHANOL SERUM < 10 mg/dL (0-10); GLOMERULAR FILTRATION RATE > 60; GLUCOSE 69 mg/dL (70-100); POTASSIUM 4.6 mEq/L (3.5-5.2); SALICYLATE < 1.0 mg/dL (2.0-20.0); SODIUM 139 mEq/L (134-144)
[2016-07-28] MEDS ORDERED: NON-FORMULARY NEW DRUG (Lamotrigine [Lamictal] 200 MG) PO SCH (15:00)
[2016-07-28] MEDS ORDERED: D5W 1/2 NS W/ 20 KCl/L 1,000 ML IV SCH (15:15)
[2016-07-28] MEDS: lamoTRIgine 100 MG TAB PO SCH (15:26)
[2016-07-28] MEDS: ALPRAZolam 1 MG TAB PO PRN ×2 (15:32→21:20)
[2016-07-28 15:36] LABS: BILIRUBIN,TOTAL 2.8 mg/dL (0.1-1.4); BILIRUBIN-CONJUGATED 0.9 mg/dL (0.0-0.5); BILIRUBIN-UNCONJUGATED 1.9 mg/dL (0.0-1.1); TOTAL PROTEIN 8.4 g/dL (6.3-8.2)
--- NOTE | 2016-07-28 16:00 | GHP ---
[f rep st] HISTORY AND PHYSICAL DATE OF ADMISSION: 07/28/2016 CHIEF COMPLAINT: Altered mental status. HISTORY OF PRESENT ILLNESS: This is a 56-year-old female known to our service with a history of sei zure disorders, who was brought to the emergency department by the emergency department after she wa s found reportedly knocking on doors and threatening people stating, "You're trying to take my baby. " The patient was agitated and pacing. She was seen at [facility] on 07/[facility]/2016, where she had some similar symptoms and was ultimately sent home after her mentati on cleared. During the time of my exam, the patient is still confused and disoriented. She does not know where she is, but is able to tell me the year. She has been living in her car. She has not been taking h er seizure medications. She tells me that she has been having multiple seizures and bit her tongue a few days ago. She denies any alcohol. She denies any tobacco. She denies any illicit drug use. PAST MEDICAL HISTORY: 1. Seizure disorder with petite mal and grand mal seizures, followed by Dr. Zayas in [place]. 2. Breast cancer status post bilateral mastectomy and reconstruction with adjuvant therapy. HOME MEDICATIONS: Reviewed. Refer to [facility] for details. ALLERGIES: Sulfa. SOCIAL HISTORY: She lives at [place] in her car. She denies any alcohol, tobacco, or illicit drug use. FAMILY HISTORY: Reviewed and significant for breast cancer in her grandmother. REVIEW OF SYSTEMS: A comprehensive 10-point review of systems was done and was negative, except for as mentioned in the HPI. PHYSICAL EXAM: VITAL SIGNS: Blood pressure 125/75, pulse is 70, respiratory rate 20, O2 saturation 98% on room air. GENERAL: In no acute distress. HEENT: Head: Normocephalic, atraumatic. Eyes: PERRLA. Sclerae anicteric. Mouth: Moist mucous membranes. Right lateral tongue has a healing l aceration. There is no active bleeding. No signs of infection. NECK: Supple. No lymphadenopathy . CARDIOVASCULAR: S1, S2. No murmurs, rubs, clicks, gallops. No JVD. No lower extremity edema. PULMONARY: Lungs are clear. No wheezes, rales, or rhonchi. ABDOMEN: Soft, nontender, nondistend ed. No guarding or rebound tenderness. Normoactive bowel sounds. EXTREMITIES: No clubbing or cya nosis. NEURO: Cranial nerves II through XII grossly intact. No focal motor or sensory deficits. SKIN: Clear no rashes. DIAGNOSTICS: WBC is 11.01, hemoglobin 15, hematocrit 43.5, platelets 281. Sodium 139, potassium 4. 6, chloride 102, CO2 19, BUN 40, creatinine 0.9, glucose 69. Urine tox screen from 07/28/2016 was u nremarkable. Ethyl alcohol was nondetectable. ASSESSMENT: This is a 56-year-old female with a history of seizure disorders presenting with acute encephalopathy of unclear etiology. Differential diagnosis includes uncontrolled seizure disorder v ersus a parasomnia from Ambien (which cannot be confirmed since the patient does not recall taking h er Ambien) versus dehydration. PLAN: The patient will be placed on observation where I will start her on Keppra and continue her h ome dose of Lamictal. Will consult Neurology. Will also start IV hydration. Will check LFTs. A h ead CT done 05/10/2016 showed no intracranial pathology. An MRI of her brain was done in July which also did not show any intracranial lesions. Will consider repeating the MRI if her conditi on does not improve. /[id number]/MODL
[2016-07-28] MEDS ORDERED: NON-FORMULARY NEW DRUG (Zolpidem Tartrate [Ambien 10 Mg] 10 MG) PO SCH (21:00)
[2016-07-28] MEDS ORDERED: ZOLPIDEM TARTRATE 5 MG TAB PO SCH (21:00)
[2016-07-28] MEDS: levETIRAcetam 500 MG TAB PO SCH (21:20)
[2016-07-29 05:08] LABS: ANION GAP 6 mEq/L (8-16); CARBON DIOXIDE 25 mEq/l (22-31); CHLORIDE 107 mEq/L (97-110); CREATININE 0.8 mg/dL (0.6-1.0); GLOMERULAR FILTRATION RATE > 60; GLUCOSE 96 mg/dL (70-100); SODIUM 138 mEq/L (134-144)
[2016-07-29] MEDS: lamoTRIgine 100 MG TAB PO SCH (09:28)
[2016-07-29] MEDS: levETIRAcetam 500 MG TAB PO SCH ×2 (09:28→20:12)
--- NOTE | 2016-07-29 12:10 | HOSPPROG ---
Hospitalist Progress Note Assessment/Plan: #acute encephalopathy (resolving) -she experienced was sounds like significant delusions. She denies a h/o psychiatric illness. I am concerned that her confusion was triggered by uncontrolled epilepsy Plan: -cont keppra and lamictal as ordered -neuro consult pending #resolved dehydration -buff cap ivf and encourage oral hydration #h/o breast cancer -last brain MRI was 07/2015 will defer repeating the study to neurology #transaminitis -will repeat labs in AM Disposition: I have discussed the case with case management. At this point she does not seem to be a safe discharge to the streets. Currently she is living in her car and doesn't know where her car is located. Her daughter lives and [place]. The patient would like to move back to [place] Will change to inpatient status Subjective: no seizure overnight. confusion is improving. she recalls some of her delusions from the past few days. she continues to deny any substance abuse Objective: Vital Signs Temp Pulse Resp BP Pulse Ox 36.4 C 84 14 92/57 L 98 07/29/16 11:33 07/29/16 11:33 07/29/16 11:33 07/29/16 11:33 07/29/16 11:33 Laboratory Results 07/29/16 04:37 07/28/16 07/29/16 07/30/16 05:59 05:59 05:59 Intake Total 1100 Balance 1100 - Physical Exam Constitutional: no apparent distress, appears nourished, not in pain Cardiovascular: regular rate and rhythym, no murmur, rub, or gallop Respiratory: no respiratory distress, no rales or rhonchi, clear to auscultation Neurologic: AAOx3, CN II-XII Intact, No facial droop ICD10 Worksheet Patient Problems: Problems Problem Status Onset Seizure disorder Acute Seizure Acute Scalp laceration Acute Altered mental status Acute
[2016-07-29] MEDS ORDERED: levETIRAcetam 500 MG TAB PO ONE (13:45)
[2016-07-29] MEDS ORDERED: NS BOLUS 500 ML (Wide open) IV ONE (14:00)
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
[2016-07-29] MEDS ORDERED: lamoTRIgine 100 MG TAB PO SCH (21:00)
[2016-07-29] MEDS ORDERED: ZOLPIDEM TARTRATE 5 MG TAB PO ONE (23:00)
[2016-07-30 04:45] LABS: % IMMATURE GRANULYOCYTES 0.2 % (0.0-1.1); ABSOLUTE IMMATURE GRANULOCYTES 0.01 10^3/uL (0.00-0.10); ADD DIFF? NO; ADD MORPH? NO; ADD SCAN? NO; ATYPICAL LYMPHOCYTE FLAG 20 (0-99); FRAGMENT RBC FLAG 0 (0-99); LEFT SHIFT FLG 0 (0-99); LIPEMIA HEMOLYSIS FLAG 80 (0-99); MEAN CELL HEMOGLOBIN 31.4 pg (27.9-34.1); MEAN CELL HEMOGLOBIN CONCENTR. 33.3 g/dL (32.4-36.7); MEAN CELL VOLUME 94.2 fL (81.5-99.8); MEAN PLATELET VOLUME 10.6 fL (8.7-11.7); PLATELET CLUMPS FLAG 0 (0-99); PLATELET COUNT 182 10^3/uL (150-400); RED BLOOD CELL COUNT 3.82 10^6/uL (4.18-5.33); RED CELL DISTRIBUTION WIDTH 13.2 % (11.5-15.2)
[2016-07-30 05:02] LABS: ALANINE AMINOTRANSFERASE 70 IU/L (9-52); ALBUMIN 3.1 g/dL (3.5-5.0); ALKALINE PHOSPHATASE 53 IU/L (38-126); ANION GAP 7 mEq/L (8-16); ASPARTATE AMINOTRANSFERASE 40 IU/L (14-46); BILIRUBIN,TOTAL 0.6 mg/dL (0.1-1.4); CALCIUM 8.5 mg/dL (8.5-10.4); CARBON DIOXIDE 26 mEq/l (22-31); CHLORIDE 110 mEq/L (97-110); CREATININE 0.7 mg/dL (0.6-1.0); GLOMERULAR FILTRATION RATE > 60; GLUCOSE 92 mg/dL (70-100); POTASSIUM 3.9 mEq/L (3.5-5.2); SODIUM 143 mEq/L (134-144); TOTAL PROTEIN 5.4 g/dL (6.3-8.2)
[2016-07-30] MEDS: levETIRAcetam 500 MG TAB PO SCH ×2 (13:07→21:12)
--- NOTE | 2016-07-30 13:17 | NEUROPROG ---
Assessment: Seizure disorder with breakthrough likely and getting back to baseline. The Keppra may be causing the dizziness so would cut back to 500mg BID Total of 25 min. total unit time. Subjective: Pt is reporting some dizziness. She has poor recollection of the recent events and is not sure what happened but has missed medication doses most likely. Objective: Vital Signs Temp Pulse Resp BP Pulse Ox 36.8 C 71 18 108/60 98 07/30/16 11:46 07/30/16 11:46 07/30/16 11:46 07/30/16 11:46 07/30/16 11:46 Laboratory Results 07/30/16 04:33 07/30/16 04:33 07/29/16 07/30/16 07/31/16 05:59 05:59 05:59 Intake Total 950 Balance 950 Alert but confused about details of the event. She is currently oriented. No additional seizures reported. Allergies/Adverse Reactions: Sulfa (Sulfonamide Antibiotics) Allergy (Verified 07/26/16 23:14)
--- NOTE | 2016-07-30 13:27 | HOSPPROG ---
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 She denies a h/o psychiatric illness Plan: -cont keppra, but will decrease dose to 500mg bid due to dizziness ( discussed the case with Dr. Bonilla who is in agreement) -home dose of lamictal has been stopped due to noncompliance and risk of SJS #vertigo suspect adverse effect from keppra vs residual from seizure -continue to monitor #resolved dehydration -buff cap ivf and encourage oral hydration #h/o breast cancer -last brain MRI was 07/2015 will defer repeating the study to neurology #transaminitis (improving) -will repeat labs in AM Disposition: I have discussed the case with case management. At this point she does not seem to be a safe discharge to the streets. Currently she is living in her car and doesn't know where her car is located. Her daughter lives and [place]. The patient would like to move back to [place] continue inpatient care until dizziness is improved and safe to [place] Subjective: reports constant room spinning dizziness. no numbness or weakness. no seizures. overall feeling better Objective: Vital Signs Temp Pulse Resp BP Pulse Ox 36.8 C 71 18 108/60 98 07/30/16 11:46 07/30/16 11:46 07/30/16 11:46 07/30/16 11:46 07/30/16 11:46 Laboratory Results 07/30/16 04:33 07/30/16 04:33 07/29/16 07/30/16 07/31/16 05:59 05:59 05:59 Intake Total 950 Balance 950 - Physical Exam Constitutional: no apparent distress, appears nourished, not in pain Cardiovascular: regular rate and rhythym, no murmur, rub, or gallop Respiratory: no respiratory distress, no rales or rhonchi, clear to auscultation Neurologic: AAOx3, CN II-XII Intact, No facial droop ICD10 Worksheet Patient Problems: Problems Problem Status Onset Seizure disorder Acute Seizure Acute Scalp laceration Acute Altered mental status Acute
[2016-07-30] MEDS: ZOLPIDEM TARTRATE 5 MG TAB PO PRN (22:35)
[2016-07-31] MEDS: levETIRAcetam 500 MG TAB PO SCH ×2 (08:41→19:56)
[2016-07-31] MEDS ORDERED: LIDOCAINE 5% 1 EA PATCH TD SCH (14:00)
--- NOTE | 2016-07-31 15:02 | HOSPPROG ---
Hospitalist Progress Note Assessment/Plan: 56y female with c/o confusion. This is my first encounter, chart reviewed. #acute encephalopathy (resolving) suspect postictal and psychosis with significant delusions. She denies a h/o psychiatric illness Plan: -cont keppra, but will decrease dose to 500mg bid due to dizziness -home dose of lamictal has been stopped due to noncompliance and risk of SJS -D/W Bev Lawrence, appreciate consult. Will order psych MD morgan -reviewed with daughter and pt at bedside. #vertigo suspect adverse effect from keppra vs residual from seizure -continue to monitor - better #resolved dehydration -buff cap ivf and encourage oral hydration #h/o breast cancer -last brain MRI was 07/2015 will defer repeating the study to neurology -consider MRI of brain for thoughness #transaminitis (improving) -better Disposition: I have discussed the case with case management. At this point she does not seem to be a safe discharge to the streets. Currently she is living in her car and doesn't know where her car is located. Her daughter is her from [place] and lives in [place]. The patient would like to move back to [place] continue inpatient care until dizziness is improved and safe to [place] await psych eval Subjective: Felling better. Concerned that she is having memory issues. Objective: Vital Signs Temp Pulse Resp BP Pulse Ox 36.7 C 64 16 117/60 97 07/31/16 12:00 07/31/16 12:00 07/31/16 12:00 07/31/16 12:00 07/31/16 12:00 Laboratory Results 07/30/16 04:33 07/30/16 04:33 07/30/16 07/31/16 08/01/16 05:59 05:59 05:59 Intake Total 950 300 Balance 950 300 - Physical Exam Constitutional: no apparent distress, appears nourished, not in pain Eyes: PERRL, anicteric sclera, EOMI Ears, Nose, Mouth, Throat: moist mucous membranes, hearing normal, ears appear normal Cardiovascular: No JVD, No tachycardia, No edema Respiratory: no respiratory distress, no rales or rhonchi, reduced air movement Gastrointestinal: No tenderness, No ascites, No guarding Skin: warm, normal color, No erythema Musculoskeletal: no joint effusions, pain with ROM, generalized weakness Psychiatric: not encephalopathic, anxious, poor insight, poor judgement, poor memory ICD10 Worksheet Patient Problems: Problems Problem Status Onset Seizure disorder Acute Seizure Acute Scalp laceration Acute Altered mental status Acute
[2016-07-31] MEDS ORDERED: PATCH REMOVAL 1 EA PATCH TD SCH (21:00)
[2016-07-31] MEDS: ALPRAZolam 1 MG TAB PO PRN (21:16)
[2016-07-31] MEDS: ZOLPIDEM TARTRATE 5 MG TAB PO PRN (23:06)
[2016-08-01] MEDS: levETIRAcetam 500 MG TAB PO SCH ×2 (09:05→21:54)
[2016-08-01] MEDS ORDERED: LORazepam 0.5 MG TAB PO ONE (12:53)
--- NOTE | 2016-08-01 15:34 | HOSPPROG ---
Hospitalist Progress Note Assessment/Plan: 56y female with c/o confusion. #acute encephalopathy (resolving) suspect postictal and psychosis with significant delusions. She denies a h/o psychiatric illness Plan: -cont keppra, but will decrease dose to 500mg bid due to dizziness -home dose of lamictal has been stopped due to noncompliance and risk of SJS -Bev Lawrence, appreciate consult. Will ordered psych MD morgan. D/W Dr Golden -reviewed with daughter and pt at bedside. #vertigo suspect adverse effect from keppra vs residual from seizure -continue to monitor - better #resolved dehydration -buff cap ivf and encourage oral hydration #h/o breast cancer -last brain MRI was 07/2015 will defer repeating the study to neurology -consider MRI of brain for thoughness #transaminitis (improving) -better Disposition: I have discussed the case with case management. At this point she does not seem to be a safe discharge to the streets. Currently she is living in her car and doesn't know where her car is located. Her daughter is her from [place] and lives in [place]. The patient would like to move back to [place] continue inpatient care until dizziness is improved and safe to [place] await psych cathy Subjective: Very tired today. Still having confusion. No pain. Objective: Vital Signs Temp Pulse Resp BP Pulse Ox 36.7 C 67 16 114/62 97 08/01/16 07:50 08/01/16 07:50 08/01/16 07:50 08/01/16 07:50 08/01/16 07:50 Laboratory Results 07/30/16 04:33 07/30/16 04:33 07/31/16 08/01/16 08/02/16 05:59 05:59 05:59 Intake Total 300 2500 Balance 300 2500 - Physical Exam Constitutional: no apparent distress, appears nourished, not in pain Eyes: PERRL, anicteric sclera, EOMI Ears, Nose, Mouth, Throat: moist mucous membranes, hearing normal, ears appear normal Cardiovascular: No JVD, No tachycardia, No edema Respiratory: no respiratory distress, no rales or rhonchi, reduced air movement Gastrointestinal: No tenderness, No ascites, No guarding Skin: warm, normal color, No erythema Musculoskeletal: normal joint ROM, no joint effusions, generalized weakness Neurologic: AAOx3 Psychiatric: not encephalopathic, anxious, poor insight, poor judgement, poor memory ICD10 Worksheet Patient Problems: Problems Problem Status Onset Seizure disorder Acute Seizure Acute Scalp laceration Acute Altered mental status Acute
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
[2016-08-01] MEDS: ZOLPIDEM TARTRATE 5 MG TAB PO PRN (21:54)
[2016-08-01 23:33] VITALS: PULSE 68; RESP 16
[2016-08-02 07:40] VITALS: BP 108/67; TEMP 98.1; O2SAT 94
[2016-08-02] MEDS: levETIRAcetam 500 MG TAB PO SCH (08:56)
--- NOTE | 2016-08-02 10:46 | HOSPPROG ---
Hospitalist Progress Note Assessment/Plan: 56y female with c/o confusion. #acute encephalopathy (resolving) Suspect this was secondary from seizure She is alert and oriented and appropriate today #seizure disorder w breakthrough seizure keppra/no driving had some dizziness form this #vertigo suspect adverse effect from keppra vs residual from seizure -continue to monitor - better #h/o breast cancer -last brain MRI was 07/2015 will defer repeating the study to neurology #transaminitis (improving) -follow up in the outpatient setting Disposition: Patient is to leave with her daughter today to [place]. It is critical that she follows up with the neurologist and psychiatrist. Case management has spoken to the psychiatrist who is in agreement with this. The patient and the daughter know the patient is not allowed to drive and must be very compliant with the Keppra. Subjective: Maxine is feeling much better. Is anxious to leave Objective: Vital Signs Temp Pulse Resp BP Pulse Ox 36.7 C 68 16 108/67 94 08/02/16 07:38 08/02/16 07:38 08/02/16 07:38 08/02/16 07:38 08/02/16 07:38 Laboratory Results 07/30/16 04:33 07/30/16 04:33 08/01/16 08/02/16 08/03/16 05:59 05:59 05:59 Intake Total 2500 Balance 2500 - Physical Exam Constitutional: no apparent distress, appears nourished, not in pain Eyes: PERRL Ears, Nose, Mouth, Throat: hearing normal Respiratory: no respiratory distress Skin: warm Musculoskeletal: full muscle strength, no muscle tenderness Neurologic: AAOx3 Psychiatric: interacting appropriately, not anxious, not encephalopathic ICD10 Worksheet Patient Problems: Problems Problem Status Onset Altered mental status Acute Scalp laceration Acute Seizure Acute Seizure disorder Acute
--- NOTE | 2016-08-02 13:25 | GDS ---
[f rep st] DISCHARGE SUMMARY DISCHARGE DIAGNOSES: 1. Acute encephalopathy. 2. Seizure disorder with breakthrough seizures. 3. Vertigo with associated dizziness from Keppra. 4. History of breast cancer. 5. Transaminitis. CONSULTATIONS: During her stay. 1. Jayesh Martinez DO. 2. Jose Golden MD. BRIEF HISTORY: The patient is a 56-year-old woman with a history of disorder who was brought to the ER after she was found reported knocking on doors and threatening people stating, "You're trying to take my baby." The patient was agitated and pacing. She had similar symptoms earlier this month, and cleared after mentation improved. She was confused and disoriented during her stay. She was se en and evaluated by Neurology who noted that she had similar picture when she was admitted to [facility] with extensive evaluation. It may be a postictal psychosis given her labs, and she also lac erated her tongue. She has improved today. In addition, she was seen by Dr. Golden with Psychiatry who is recommending that she get further follow up with the neurologist and psychiatrist in the out patient setting. HOSPITAL COURSE PER PROBLEM: 1. Acute encephalopathy. This has resolved. This is likely from the seizure. She is alert and or iented and appropriate today. 2. Seizure disorder with breakthrough seizure. She has been placed on Keppra, and I told her and h er daughter she cannot drive. 3. Vertigo. This was secondary from the Keppra. She is no longer having this. 4. History of breast cancer. She had an MRI in 2016. 5. Transaminitis. Improving, she needs further follow up in the outpatient setting. CONDITION AT DISCHARGE: Stable. Blood pressure is 108/67, O2 saturation on room air 94%, respirato ry rate is 16, pulse is 68, temperature 36.7 Celsius. MEDICATIONS AT DISCHARGE: Please see the EMR. DISCHARGE INSTRUCTIONS: 1. No driving. 2. To continue the Keppra. She will get a month's supply. She will be traveling with her daughter today back to the [place] area. 3. She needs close followup with the neurologist, psychiatrist and a primary care provider. Greater than 30 minutes discharging and coordinating care. /[id number]/MODL
== END 2016-08-02 12:08 | disposition home or self-care (01) | DRG 101 ==
LOC: INTOOBSV 12:29 → F3N 14:38 → OBSVTOIN 07-29 12:13
PROVIDERS: ADMIT Hospitalist; ATTEND Family Medicine
DX: G40.409 Other generalized epilepsy and epileptic syndromes, not intractable, without status epilepticus (principal); R42 Dizziness and giddiness; T42.75XA Adverse effect of unspecified antiepileptic and sedative-hypnotic drugs, initial encounter; R74.0 Nonspecific elevation of levels of transaminase and lactic acid dehydrogenase [LDH]; Z85.3 Personal history of malignant neoplasm of breast; Z59.0 Homelessness; E86.0 Dehydration
CPT/HCPCS: 80175-90; 80305; G0378; G0480

== ENCOUNTER 2017-03-27 20:41 | Emergency (ER) | payer OTHER ==
--- NOTE | 2017-03-27 20:43 | EDPHY ---
HPI/HX/ROS/PE/MDM - Data Points Imaging: Discussed imaging studies w/ call center analyst Radiologist, I viewed and interpreted images myself Narrative: CHIEF COMPLAINT: AMS, possible seizure HPI: The patient is a 56 y/o female with a history of epilepsy arriving via EMS for evaluation of confusion after she was found at a bus stop tonight and didn' t know how to get home. She has been admitted here previously for altered mental status, most recently on 07/28/16, and it was thought she may have had a postictal psychosis. She had extensive work up for similar symptoms previously and after her most recent admission they recommended outpatient followup with neurology and psychiatry. EMS was called to a seizure today, but did not witness a seizure nor were they able to speak with a bystander on scene who may have observed this. The patient told EMS she hasn't slept for 5 days after abruptly stopping her Ambien. She says she did take her Lamictal today. History is difficult to obtain due to AMS. REVIEW OF SYSTEMS: Limited by AMS. PMH: Seizure disorder with petite mal and grand mal seizures followed by Dr. Zayas in [place]; breast cancer status post bilateral mastectomy and reconstruction SOCIAL HISTORY: Lives in [place]. Denies illicit drugs, tobacco, alcohol. Prior medical records reviewed including admission 07/29/16 for AMS. PHYSICAL EXAM: General:Patient is alert, in no acute distress. ENT:Eyes are normal to inspection. ENT inspection normal. Neck: Normal inspection. Full range of motion. Respiratory:No respiratory distress. Breath sounds normal bilaterally. Cardiovascular: Regular rate and rhythm. Strong peripheral pulses. Normal cap refill. Abdomen:The abdomen is nontender to palpation. There are no peritoneal signs. Back: Normal to inspection. No tenderness to palpation. Skin: Normal color. No rash. Warm and dry. Extremities: Normal appearance. Full range of motion. Neuro: Confused. Normal motor function. Normal sensory function. (Yogi Tavares) ED Course: This is a 56 y/o with a seizure disorder and possibly concurrent psychiatric illness who presents with AMS after she was found confused at a bus stop tonight. She has been admitted previously for similar presentations and last year it was thought she may have a postictal psychosis that cleared after a few days. We are unable to determine if she had a seizure tonight. No evidence of trauma on exam. She continues to be somewhat confused. Plan for labs including drug screen and head CT. 1L IV NS administered. Head CT: negative per Dr. Mendoza, radiologist. (Yogi Tavares) MDM: This patient presents with severe AMS in the setting of seizure disorder. She has previously been admitted for what has been termed postictal psychosis that lasts for days before clearing. However, the patient had no witnessed seizure tonight, and has no signs of trauma. She tells me that she has been awake for at least six days straight, so while she may have indeed had a seizure, it seems clear that another mental health issue is present. As such, I think she would benefit from psychiatric evaluation here in the ED. She is medically clear. I have placed her on a detainer for the time being for grave disability , pending mental health evaluation. (Yogi Tavares) [id number]: Patient has been seen in mental health. They do feel that she is safe for discharge. She does not want hurt herself or anybody else. She does not appear gravely disable. She is enrolled Mental [facility] in [facility] and has care team. Patient is requesting be discharged he would like to go home she states she has to go work tomorrow. (Brendan Butler) - Data Points Imaging Results: Imaging Impressions Head CT 03/27/17 20:52 Impression: Negative for hemorrhage or mass lesion.. Specifically, a seizure focus is not identified. Suspect small vessel microvascular disease. Results called and discussed with Yogi Tavares MD on 03/27/2017 at 21:39 Laboratory Results: Laboratory Results 03/27/17 20:55 03/27/17 20:55 03/27/17 03/27/17 03/27/17 21:11 20:55 20:55 WBC 6.21 10^3/uL 10^3/uL (3.80-9.50) RBC 4.57 10^6/uL 10^6/uL (4.18-5.33) Hgb 14.7 g/dL g/dL (12.6-16.3) Hct 41.5 % % (38.0-47.0) MCV 90.8 fL fL (81.5-99.8) MCH 32.2 pg pg (27.9-34.1) MCHC 35.4 g/dL g/dL (32.4-36.7) RDW 12.5 % % (11.5-15.2) Plt Count 286 10^3/uL 10^3/uL (150-400) MPV 10.1 fL fL (8.7-11.7) Neut % (Auto) 54.3 % % (39.3-74.2) Lymph % (Auto) 37.2 % % (15.0-45.0) [place] % (Auto) 6.4 % % (4.5-13.0) Eos % (Auto) 1.4 % % (0.6-7.6) Baso % (Auto) 0.5 % % (0.3-1.7) Nucleat RBC Rel Count 0.0 % % (0.0-0.2) Absolute Neuts (auto) 3.37 10^3/uL 10^3/uL (1.70-6.50) Absolute Lymphs (auto) 2.31 10^3/uL 10^3/uL (1.00-3.00) Absolute Monos (auto) 0.40 10^3/uL 10^3/uL (0.30-0.80) Absolute Eos (auto) 0.09 10^3/uL 10^3/uL (0.03-0.40) Absolute Basos (auto) 0.03 10^3/uL 10^3/uL (0.02-0.10) Absolute Nucleated RBC 0.00 10^3/uL 10^3/uL (0-0.01) Immature Gran % 0.2 % % (0.0-1.1) Immature Gran # 0.01 10^3/uL 10^3/uL (0.00-0.10) Sodium 141 mEq/L mEq/L (135-145) Potassium 3.3 mEq/L L mEq/L (3.5-5.2) Chloride 101 mEq/L mEq/L (97-110) Carbon Dioxide 22 mEq/l mEq/l (22-31) Anion Gap 18 mEq/L H mEq/L (8-16) BUN 7 mg/dL mg/dL (7-23) Creatinine 0.8 mg/dL mg/dL (0.6-1.0) Estimated GFR > 60 Glucose 95 mg/dL mg/dL (70-100) Calcium 10.3 mg/dL mg/dL (8.5-10.4) Troponin I < 0.012 ng/mL ng/mL (0.000-0.034) TSH 2.900 uIU/mL uIU/mL (0.465-4.680) Urine Opiates Screen NEGATIVE (NEGATIVE) Urine Barbiturates NEGATIVE (NEGATIVE) Ur Phencyclidine Scrn NEGATIVE (NEGATIVE) Ur Amphetamine Screen NEGATIVE (NEGATIVE) U Benzodiazepines Scrn NEGATIVE (NEGATIVE) Urine Cocaine Screen NEGATIVE (NEGATIVE) U Marijuana (THC) Screen NEGATIVE (NEGATIVE) Medications Given: Discontinued Medications Sodium Chloride (Ns) 1,000 mls @ 0 mls/hr IV EDNOW ONE; Wide Open PRN Reason: Protocol Stop: 03/27/17 20:45 Last Admin: 03/27/17 21:22 Dose: 1,000 mls General Initial Vital Signs: Initial Vital Signs Temperature (C) 36.9 C 03/27/17 20:45 Heart Rate 70 03/27/17 20:45 Respiratory Rate 16 03/27/17 20:45 Blood Pressure 133/76 H 03/27/17 20:45 O2 Sat (%) 99 03/27/17 20:45 O2 Delivery Mode Room Air Allergies/Adverse Reactions: Sulfa (Sulfonamide Antibiotics) Allergy (Verified 07/26/16 23:14) Home Medications: Medication Instructions Recorded Zolpidem Tartrate [Ambien 10 mg] 10 mg PO HS 05/10/16 Lamictal 03/27/17 Departure - Departure Disposition: Home, Routine, Self-Care Clinical Impression: PTSD (post-traumatic stress disorder) Condition: Good Instructions: Post Traumatic Stress Disorder (ED) Additional Instructions: 1. Return emergency room if you have any worsening symptoms questions or concerns. Referrals: Patient,NotPresent [Unknown] - As per Instructions Report Scribed for: Yogi Tavares Report Scribed by: Cinthya Harris Date of Report: 03/27/17 Time of Report: 20:50 Physician Review and Approval Statement: Portions of this note were transcribed by an ED scribe. I personally performed the history, physical exam, and medical decision making; and confirm the accuracy of the information in the transcribed note.
[2017-03-27] MEDS ORDERED: NS 1,000 ML IV ONE (20:44)
[2017-03-27 20:47] VITALS: RESP 16; TEMP 98.4
[2017-03-27 21:13] LABS: PLATELET COUNT 286 10^3/uL (150-400)
[2017-03-28 04:36] VITALS: BP 126/84; PULSE 76; O2SAT 98
== END 2017-03-28 05:04 | disposition home or self-care (01) ==
LOC: EDUNIT#
PROC: 3E0337Z Introduction of Electrolytic and Water Balance Substance into Peripheral Vein, Percutaneous Approach (ICD-10-PCS; principal; 2017-03-27)
DX: F43.10 Post-traumatic stress disorder, unspecified (principal); E86.9 Volume depletion, unspecified; Z85.3 Personal history of malignant neoplasm of breast
CPT/HCPCS: 80305

== ENCOUNTER 2017-05-27 17:35 | Emergency (ER) | payer OTHER ==
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
[2017-05-27] MEDS ORDERED: TDAP ADULT 0.5 ML INJ (BOOSTRIX) IM ONE (18:32)
[2017-05-27 18:38] VITALS: BP 161/92
== END 2017-05-27 18:43 | disposition home or self-care (01) ==
LOC: EDUNIT#
PROC: 3E0234Z Introduction of Serum, Toxoid and Vaccine into Muscle, Percutaneous Approach (ICD-10-PCS; principal; 2017-05-27)
DX: S00.01XA Abrasion of scalp, initial encounter (principal); Z23 Encounter for immunization; V03.90XA Pedestrian on foot injured in collision with car, pick-up truck or van, unspecified whether traffic or nontraffic accident, initial encounter; Y92.410 Unspecified street and highway as the place of occurrence of the external cause; Y99.8 Other external cause status; Y93.01 Activity, walking, marching and hiking